=== PATIENT | male | born 1985 | race Caucasian/White ===

== ENCOUNTER 2018-05-29 22:25 | Emergency (ER) | payer SELFPAY ==
--- NOTE | 2018-05-29 22:41 | ED PDOC ---
Arrival/HPI - General Historian: Patient <PopBlaire A - Last Filed: 05/29/18 22:37> <Dyllan Arroyo - Last Filed: 05/29/18 22:43> - General Chief Complaint: Dental Pain Time Seen by Provider: 05/29/18 22:36 - History of Present Illness Narrative History of Present Illness (Text): 05/29/18 22:37 32yo male with no pmhx present with complaint of left sided upper premolar tooth x2days. States the tooth cracked few days ago and the pain started yesterday. Denies any other complaint. (Blaire Lord A) Past Medical History - Provider Review Nursing Documentation Reviewed: Yes - Infectious Disease Hx of Infectious Diseases: None - Psychiatric Hx Substance Use: No - Anesthesia Hx Anesthesia: No <Blaire Lord A - Last Filed: 05/29/18 22:37> Family/Social History - Physician Review Nursing Documentation Reviewed: Yes Family/Social History: Unknown Family HX Smoking Status: Current Some Days Smoker Hx Alcohol Use: Yes Frequency of alcohol use: Socially Hx Substance Use: No <Blaire Lord A - Last Filed: 05/29/18 22:37> Allergies/Home Meds <PopBlaire A - Last Filed: 05/29/18 22:37> <Dyllan Arroyo - Last Filed: 05/29/18 22:43> Allergies/Adverse Reactions: Allergies No Known Allergies Allergy (Verified 05/29/18 22:34) Review of Systems - Physician Review All systems were reviewed & negative as marked: Yes - Review of Systems Constitutional: Normal Eyes: Normal ENT: Other (Toothache) Respiratory: Normal Cardiovascular: Normal Gastrointestinal: Normal Genitourinary Male: Normal Musculoskeletal: Normal Skin: Normal Neurological: Normal Endocrine: Normal Hemo/Lymphatic: Normal Psychiatric: Normal <PopBlaire A - Last Filed: 05/29/18 22:37> Physical Exam Vital Signs Reviewed: Yes Temperature: Afebrile Blood Pressure: Normal Pulse: Regular Respiratory Rate: Normal Appearance: Positive for: Well-Appearing, Non-Toxic, Comfortable Pain Distress: None Mental Status: Positive for: Alert and Oriented X 3 - Systems Exam Head: Present: Atraumatic, Normocephalic Pupils: Present: PERRL Extroacular Muscles: Present: EOMI Conjunctiva: Present: Normal Mouth: Present: Moist Mucous Membranes. No: Normal Teeth (Partial avulsed left upper premolar noted. No gum swelling.) Neck: Present: Normal Range of Motion Respiratory/Chest: Present: Clear to Auscultation, Good Air Exchange. No: Respiratory Distress, Accessory Muscle Use Cardiovascular: Present: Regular Rate and Rhythm, Normal S1, S2. No: Murmurs Abdomen: No: Tenderness, Distention, Peritoneal Signs Back: Present: Normal Inspection Upper Extremity: Present: Normal Inspection. No: Cyanosis, Edema Lower Extremity: Present: Normal Inspection. No: Edema Neurological: Present: GCS=15, CN II-XII Intact, Speech Normal Skin: Present: Warm, Dry, Normal Color. No: Rashes Psychiatric: Present: Alert, Oriented x 3, Normal Insight, Normal Concentration <Blaire Lord - Last Filed: 05/29/18 22:37> - Medication Orders Current Medication Orders: Discontinued Medications Amoxicillin (Amoxil 500 Mg Cap) 500 mg PO STAT STA PRN Reason: Protocol Stop: 05/29/18 22:37 Ketorolac Tromethamine (Toradol) 60 mg IM STAT STA Stop: 05/29/18 22:38 - PA / [employer] / Resident Statement / has reviewed & agrees with the documentation as recorded. <Dyllan Arroyo - Last Filed: 05/29/18 22:43> Disposition/Present on Arrival - Present on Arrival Any Indicators Present on Arrival: No History of DVT/PE: No History of Uncontrolled Diabetes: No Urinary Catheter: No History of Decub. Ulcer: No History Surgical Site Infection Following: None - Disposition Have Diagnosis and Disposition been Completed?: Yes Disposition Time: 22:45 Patient Plan: Discharge <Blaire Lord - Last Filed: 05/29/18 22:37> <Dyllan Arroyo - Last Filed: 05/29/18 22:43> - Disposition Diagnosis: Dental caries Disposition: HOME/ ROUTINE Condition: STABLE Discharge Instructions (ExitCare): Dental Pain Additional Instructions: Follow up with a Dentist Return to ED for any new or worsening symptoms Prescriptions: Amoxicillin [Amoxil 500 mg Cap] 500 mg PO TID #21 cap Ibuprofen [Motrin Tab] 600 mg PO Q6 #20 tab Referrals: Odette Mederos MD [Staff Provider] - Follow up with primary Forms: waygum (Tristanian)
[2018-05-30 00:20] VITALS: BP 152/89; PULSE 78; RESP 16; TEMP 98.5; O2SAT 100
== END 2018-05-30 00:19 | disposition home or self-care (01) ==
LOC: ED 22:25
DX: K02.9 Dental caries, unspecified (principal)
CPT/HCPCS: 96372; 99282; J1885